=== PATIENT | male | born 1995 | race Caucasian/White ===

== ENCOUNTER 2025-02-11 16:54 | Emergency (ER) | payer SELFPAY ==
[2025-02-11] VITALS (8 sets, daily range): BP systolic 104–125; BP diastolic 52–74; PULSE 64–93; RESP 14–25; TEMP 36.3; O2SAT 93–100; BMI 32.0
--- NOTE | 2025-02-11 17:22 | ED_ITS ---
HPI - Skin/Abscess/Foreign Bdy 2 General: Chief complaint: Skin/Abscess/Foreign Body Stated complaint: right side facial swelling Time Seen by Provider: 02/11/25 17:08 History of Present Illness: 29-year-old male patient who presented e [facility] and saw the previous physician with prior tooth pain, followed by development of mainly right sided facial swelling. He states that the bottom of his neck began to swell as well, and that he was having more trouble talking. He is having trouble with his own saliva. He has not had a fever. Related Data Home Medications ?Medication ?Instructions ?Recorded ?Confirmed No Known Home Medications 03/25/21 07/02/18 Allergies Allergy/AdvReac Type Severity Reaction Status Date / Time seizure medication Allergy unknown Uncoded 03/25/21 15:45 Course 2 Vital Signs: Vital signs: Vital Signs Temperature 97.4 F L 02/11/25 17:09 Pulse Rate 72 02/11/25 21:56 Respiratory Rate 16 02/11/25 21:56 Blood Pressure 106/52 02/11/25 21:56 Pulse Oximetry 100 02/11/25 21:56 Oxygen Delivery Me thod Mechanical Ventil ation 02/11/25 21:27 Fraction of Inspir ed Oxygen 40 02/11/25 21:27 MDM - Skin/Abscess/Foreign Bdy Medicial Decision Making Patient was intubated by the previous physician. He has been stable. He is requiring significant amount of sedation, as he is young. He is on Versed fentanyl and propofol. Current vital signs blood pressure 104/54 heart rate 64 saturation is 100% on the ventilator. Chest x-ray reveals ET tube and OG tube in appropriate positions. 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 We do not have ENT surgery here. I spoke with one of the emergency physicians at [facility]. They have agreed to take as an ER to ER transfer. He will go by ground as he has been stable. 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 Right submandibular gland sialadenitis. Diffuse pharyngitis. Chest X-Ray 02/11/25 17:28 IMPRESSION: As above. Laboratory Results WBC 15.77 10^3/uL (3.29-11.43) H 02/11/25 17:33 RBC 5.24 10^6/uL (3.85-5.65) 02/11/25 17:33 Hgb 15.40 g/dL (11.27-16.99) 02/11/25 17:33 Hct 44.2 % (37-53) 02/11/25 17:33 MCV 84.4 fl (82-101) 02/11/25 17:33 MCH 29.4 pg (27-33) 02/11/25 17: MCHC 34.8 g/dL (30-55) 02/11/25 17: RDW 12.4 % (12.1-15.1) 02/11/25 17: Plt Count 354 10^3/cmm (157-399) 02/11/25 17: MPV 9.5 fL (7.4-10.4) 02/11/25 17:33 Neut % (Auto) 75.7 % 02/11/25 17:33 Lymph % (Auto) 15.4 % 02/11/25 17:33 Summers % (Auto) 7.9 % 02/11/25 17:33 Eos % (Auto) 0.4 % 02/11/25 17:33 Baso % (Auto) 0.2 % 02/11/25 17:33 Neut # (Auto) 11.95 10^3/uL (1.8-7.7) H 02/11/25 17:33 Lymph # (Auto) 2.4 10^3/uL (0.8-4.8) 02/11/25 17:33 Summers # (Auto) 1.2 10^3/uL (0.2-0.9) H 02/11/25 17:33 Eos # (Auto) 0.1 10^3/uL (0.0-0.8) 02/11/25 17:33 Baso # (Auto) 0.0 10^3/uL (0.0-0.1) 02/11/25 17:33 Nucleated RBC % (auto) 0 % 02/11/25 17:33 Nucleated RBCs # 0.0 /100WBC 02/11/25 17:33 Sodium 141 mmol/L (136-145) 02/11/25 17:33 Potassium 3.5 mmol/L (3.5-5.1) 02/11/25 17:33 Chloride 100 mmol/L (98-107) 02/11/25 17:33 Carbon Dioxide 20 mmol/L (22-29) L 02/11/25 17:33 Anion Gap 24.5 (5-19) H 02/11/25 17:33 BUN 7 mg/dL (6-20) 02/11/25 17:33 Creatinine 0.5 mg/dL (0.7-1.2) L 02/11/25 17:33 GFR Calculation 195.2 mL/min (90-130) H 02/11/25 17:33 Glucose 87 mg/dL (65-115) 02/11/25 17:33 Calculated Osmolality 289 mOsm/kg (285-295) 02/11/25 17:33 Lactic Acid 1.9 mmol/L (0.5-2.2) 02/11/25 17:33 Calcium 9.3 mg/dL (8.5-10.5) 02/11/25 17:33 Total Bilirubin 0.9 mg/dL (0.15-1.2) 02/11/25 17:33 AST 10 U/L (0-40) 02/11/25 17:33 ALT 9 U/L (0-41) 02/11/25 17:33 Alkaline Phosphatase 67 U/L (40-130) 02/11/25 17:33 Total Protein 8.2 g/dL (6.6-8.7) 02/11/25 17:33 Albumin 4.5 g/dL (3.5-5.2) 02/11/25 17:33 Globulin 3.7 g/dL (1.3-4.6) 02/11/25 17:33 Urine Color Christian (Yellow) A 02/11/25 18:17 Urine Appearance Clear (CLEAR) 02/11/25 18:17 Urine pH 6.5 (5-7) 02/11/25 18:17 Ur Specific Neville 1.024 (1.005-1.030) 02/11/25 18:17 Urine Protein 1+ (Negative) A 02/11/25 18:17 Urine Glucose (UA) Negative (Normal) 02/11/25 18:17 Urine Ketones 3+ (Negative) H 02/11/25 18:17 Urine Blood Negative (Negative) 02/11/25 18:17 Urine Nitrate Negative (Negative) 02/11/25 18:17 Urine Bilirubin Negative (Negative) 02/11/25 18:17 Urine Urobilinogen 1.0 mg/dL (Negative) 02/11/25 18:17 Ur Leukocyte Esterase Negative (Negative) 02/11/25 18:17 Urine RBC 0-2 /hpf (0-2) 02/11/25 18:17 Urine WBC 0-5 /hpf (0-5) 02/11/25 18:17 Ur Squamous Epith Cells 0-5 /hpf (0-5) 02/11/25 18:17 Amorphous Sediment Not Reportable 02/11/25 18:17 Urine Bacteria None seen /hpf (NONE) 02/11/25 18:17 Hyaline Casts 0.40 /lpf 02/11/25 18:17 All radiology interpretation(s) finalized by discharge Discharge Plan Discharge Patient Disposition: Xfer Short-Term Hosp Clinical Impression: Rashi angina Condition: Serious Referrals: Angelo,PORTER, PLAY WRITER [Primary Care Provider, Family Practice] Print Language: Upper Sorbian Coding Level of Care Code ED Interior Wirer for Fabiana Madrid
--- NOTE | 2025-02-11 17:27 | CTR_ITS ---
PROCEDURE INFORMATION: Exam: CT Neck With Contrast Exam date and time: 02/11/2025 7:50 PM Age: 29 years old Clinical indication: Dysphagia / difficulty swallowing and mass, lump, or swelling in neck; Patient C/O of worsening swelling of neck and dysphagia despite antibiotic treatment from another er. Patient had loss of airway requiring intubation. Prominent anterior submental swelling with secretions. ; Additional info: Rashi's angina TECHNIQUE: Imaging protocol: Computed tomography of the neck with contrast. Radiation optimization: All CT scans at this facility use at least one of these dose optimization techniques: automated exposure control; mA and/or kV adjustment per patient size (includes targeted exams where dose is matched to clinical indication); or iterative reconstruction. Contrast material: OMNI 350; Contrast volume: 100 ml; Contrast route: INTRAVENOUS (IV); COMPARISON: CR (CHEST, ) 02/11/2025 5:39 PM RADIATION DOSE METRICS: Total DLP (mGy-cm): 807.33 FINDINGS: Tubes, catheters and devices: An ET tube present with tip above the aury. Paranasal sinuses: Scattered ethmoid air cell opacification. Mild mucosal thickening of the right maxillary sinus. No air-fluid levels within the visualized paranasal sinuses. Salivary glands: There is edema of the right submandibular gland. Oral cavity: There is marked inflammation and edema involving the right base of the tongue with an abscess measuring 2.3 x 4.1 x 2.1 cm. The edema markedly narrows the airway. The airway is protected by above-mentioned ETT. Teeth: Dental caries present. Pharynx: There is diffuse pharyngeal edema. Larynx: Unremarkable. Epiglottis is normal. Thyroid: Normal. No enlarged or calcified nodules. Trachea: Visualized trachea is unremarkable. Lungs: Unremarkable as visualized. Lymph nodes: Enlarged cervical lymph nodes present that are likely reactive. Bones/joints: No acute bony abnormality. Soft tissues: There is inflammation and stranding of the right perimandibular subcutaneous fat. 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 Right submandibular gland sialadenitis. Diffuse pharyngitis.
--- NOTE | 2025-02-11 17:28 | XRR_ITS ---
PROCEDURE INFORMATION: Exam: XR Chest Exam date and time: 02/11/2025 5:39 PM Age: 29 years old Clinical indication: Device placement; Ett placement (vent status); Ett/og confirmation; Ludwigs angina TECHNIQUE: Imaging protocol: Radiologic exam of the chest. Views: 1 view. COMPARISON: No relevant prior studies available. FINDINGS: Tubes, catheters and devices: Endotracheal tube is present with its distal tip 4 cm from the aury. Enteric feeding tube is present with its distal tip and side port subdiaphragmatic and out of view. Lungs: Unremarkable. No consolidation. Pleural spaces: Unremarkable. No pleural effusion. No pneumothorax. Heart/Mediastinum: Unremarkable. No cardiomegaly. Bones/joints: Unremarkable. XR/XR chest 1V portable [id number] IMPRESSION: As above.
[2025-02-11] MEDS: etomidate 2 mg/mL INJ SDV 10 mL 20 MG IVP ×2 (17:37→17:50)
[2025-02-11] MEDS: succinylcholine 20 mg/mL SDV 10mL 100 MG IVP (17:38)
[2025-02-11] MEDS: propofol 10 mg/mL SDV 20 mL 150 MG IVP (17:40)
[2025-02-11 17:44] LABS: Basophils % 0.2 %; Eosinophils # 0.1 10^3/uL (0.0-0.8); Eosinophils % 0.4 %; Hematocrit 44.2 % (37-53); Lymphocytes # 2.4 10^3/uL (0.8-4.8); Lymphocytes % 15.4 %; Mean Corpuscular HGB Conc 34.8 g/dL (30-55); Mean Corpuscular Hemoglobin 29.4 pg (27-33); Mean Corpuscular Volume 84.4 fl (82-101); Mean Platelet Volume 9.5 fL (7.4-10.4); Monocytes # 1.2 10^3/uL (0.2-0.9); Monocytes % 7.9 %; Neutrophils # 11.95 10^3/uL (1.8-7.7); Neutrophils % 75.7 %; Nucleated Red Blood Cells % 0 %; Platelet Count 354 10^3/cmm (157-399); Red Blood Count 5.24 10^6/uL (3.85-5.65); Red Cell Distribution Width 12.4 % (12.1-15.1); White Blood Count 15.77 10^3/uL (3.29-11.43)
[2025-02-11] MEDS: vecuronium 10 mg SDV IVP (17:47)
[2025-02-11] MEDS: midazolam hcl 100 MG/100 ML BAG IV (17:54)
[2025-02-11] MEDS: fentaNYL 1,000 MCG/100 ML BAG 7.5 MCG IV (17:55)
[2025-02-11 18:00] LABS: Alanine Aminotransferase 9 U/L (0-41); Albumin Level 4.5 g/dL (3.5-5.2); Alkaline Phosphatase 67 U/L (40-130); Anion Gap 24.5 (5-19); Aspartate Amino Transferase 10 U/L (0-40); Blood Urea Nitrogen 7 mg/dL (6-20); Calcium 9.3 mg/dL (8.5-10.5); Carbon Dioxide 20 mmol/L (22-29); Chloride 100 mmol/L (98-107); Globulin 3.7 g/dL (1.3-4.6); Glomerular Filtration Rate 195.2 mL/min (90-130); Glucose 87 mg/dL (65-115); Osmolality Calculated 289 mOsm/kg (285-295); Potassium 3.5 mmol/L (3.5-5.1); Sodium 141 mmol/L (136-145); Total Bilirubin 0.9 mg/dL (0.15-1.2); Total Protein 8.2 g/dL (6.6-8.7)
[2025-02-11 18:01] LABS: Creatinine Clr Calc Pharmacy 273.1031
[2025-02-11 18:14] LABS: Lactic Sepsis W/Reflex 1.9 mmol/L (0.5-2.2)
--- NOTE | 2025-02-11 18:15 | PC.NURSE ---
INTUBATION: 1737: HR 88 100% ROOM AIR 142/108 1737: ETOMIDATE 20 MG IVP 1738: SUCCS 100 MG IVP 1740: PROPOFOL 60 MG IVP 1741: PROPOFOL 40MG IVP 1745: PROPOFOL 50 MG IVP 1745: INTUBATED 7 TUBE - 26 AT THE LIP 1747: VECC 10 MG IVP 1750: ETOMIDATE 20 MG IVP 1755: OG PLACED 1757: XR PLACEMENT 1800: HR 68 100% MECH VENT 165/93 1820: PROPOFOL 50MG IVP
[2025-02-11] MEDS: piperacillin-tazobactam 3.375 GM in sodium chloride 0.9% (plus) 50 ML IV (18:17)
[2025-02-11] MEDS: propofol 10 mg/mL SDV 20 mL 50 MG IVP ×2 (18:20→18:25)
--- NOTE | 2025-02-11 18:32 | PC.NURSE ---
50mg Propofol IVP
[2025-02-11] MEDS: propofol 10 mg/mL SDV 20 mL 100 MG IVP (18:40)
[2025-02-11] MEDS: propofol 1,000 MG/100 ML INJ 6.42 MG IV (18:45)
--- NOTE | 2025-02-11 18:58 | PC.NURSE ---
150mg of propofol wasted with [facility]
[2025-02-11 19:03] LABS: Bilirubin Urine Negative (Negative); Blood Urine Negative (Negative); Glucose Urine UA Negative (Normal); Ketones Urine 3+ (Negative); Leukocyte Esterase Urine Negative (Negative); Nitrate Urine Negative (Negative); Protein Urine 1+ (Negative); Specific Gravity, Urine 1.024 (1.005-1.030); Urine Appearance Clear (CLEAR); pH Urine 6.5 (5-7)
[2025-02-11 19:08] LABS: Add Urine Microscopic? YES; Bacteria Urine None Seen /hpf; RBC Urine 0-2 /hpf (0-2); Squamous Epithelial Cell Urine 0-5 /hpf (0-5); WBC Urine 0-5 /hpf (0-5)
[2025-02-11 19:16] LABS: Urine Color Orange (Yellow)
[2025-02-11] MEDS: iohexol 350 mg/mL 500 mL Btl (per mL) IV (19:57)
[2025-02-11] MEDS: dexamethasone 10 mg/mL INJ IVP (21:06)
[2025-02-11] MEDS: propofol 1,000 MG/100 ML INJ 41.75 MG IV (21:16)
--- NOTE | 2025-02-11 21:57 | PC.NURSE ---
1 bottle (100 mL) of propofol sent with [facility].
== END 2025-02-11 22:00 | disposition short-term general hospital (02) ==
PROVIDERS: Family Medicine; Emergency Provider Emergency Medicine; PCP Nurse Practitioner Family
DX: K12.2 Cellulitis and abscess of mouth (principal)
CPT/HCPCS: 70491; 71045; 80053; 81001; 83605; 85025; 87040; 87070; 87077; 87150; 87186; 87205; 94002; 94799; 96365; 96366; 96367; 96375; 99291; 99292; J0330; J1100; J2250; J2543; J2704; J3010; J3490; J7030